=== PATIENT | female | born 1940 | race Caucasian/White ===

== ENCOUNTER 2018-06-05 18:31 | Inpatient (IN) | payer MEDICARE ==
[~2018-06-05] VITALS: Ht 165.1 cm; Wt 78.1 kg
--- NOTE | ~2018-06-05 | EKG ---
[place], [place] ELECTROCARDIOGRAM REPORT NAME: LEIGHTON DUKE UNIT #: [id number] ROOM: 412 DOCTOR: EUN DRAFT REPORT BIRTHDATE: [birth year] [facility] Test Date: 2018-06-05 Test Time: 18:35:04 Pat Name: LEIGHTON DUKE Department: Room: 412 Gender: F Glass Installer Technician: Yvette Davila : 1940 Requested By: LUIS ALBERTO VILLASENOR Order Number: [id number] Reading MD: Fransico Vásquez MD Measurements Intervals [place] Rate: 63 P: 66 MD: 263 QRS: 59 QRSD: 103 T: 44 QT: 446 QTc: 457 Interpretive Statements Sinus rhythm Prolonged MD interval, first degree block Probable left atrial enlargement Borderline T abnormalities, anterior leads Electronically Signed On 06-07-2018 14:32:06 PST by Fransico Vásquez MD CM:EKGRPT:ELECTROCARDIOGRAM REPORT 1835 1432 LUIS ALBERTO MANJARREZ DRAFT REPORT LUIS ALBERTO VILLASENOR DO
--- NOTE | ~2018-06-05 | EKG ---
[place], [place] ELECTROCARDIOGRAM REPORT NAME: LEIGHTON DUKE UNIT #: [id number] ROOM: 412 DOCTOR: EUN DRAFT REPORT BIRTHDATE: [birth year] [facility] Test Date: 2018-06-06 Test Time: 00:21:05 Pat Name: LEIGHTON DUKE Department: Room: 412 Gender: F Turbine Technician: Mesfin Savage : 1940 Requested By: LUIS ALBERTO VILLASENOR Order Number: [id number] Reading MD: Fransico Vásquez MD Measurements Intervals [place] Rate: 61 P: 65 PA: 273 QRS: 54 QRSD: 96 T: 24 QT: 453 QTc: 457 Interpretive Statements Sinus rhythm Prolonged PA interval/ firstr degree block Borderline T abnormalities, anterior leads Electronically Signed On 06-07-2018 14:33:59 PST by Fransico Vásquez MD CM:EKGRPT:ELECTROCARDIOGRAM REPORT 0021 1433 LUIS ALBERTO MANJARREZ DRAFT REPORT LUIS ALBERTO VILLASENOR DO
--- NOTE | ~2018-06-05 | EKG ---
[place], [place] ELECTROCARDIOGRAM REPORT NAME: LEIGHTON DUKE UNIT #: [id number] ROOM: 412 DOCTOR: EUN DRAFT REPORT BIRTHDATE: [birth year] [facility] Test Date: 2018-06-05 Test Time: 21:21:34 Pat Name: LEIGHTON DUKE Department: Room: 412 Gender: F Assistant Store Manager Sales: Yvette Davila : 1940 Requested By: LUIS ALBERTO VILLASENOR Order Number: [id number] Reading MD: Fransico Vásquez MD Measurements Intervals [place] Rate: 63 P: 4 NH: 261 QRS: 33 QRSD: 100 T: 24 QT: 440 QTc: 451 Interpretive Statements Sinus rhythm Prolonged [place] interval Abnormal inferior Q waves Borderline ST depression, anterolateral leads Electronically Signed On 06-07-2018 14:32:45 PST by Fransico Vásquez MD CM:EKGRPT:ELECTROCARDIOGRAM REPORT 20 1432 LUIS ALBERTO MANJARREZ DRAFT REPORT LUIS ALBERTO VILLASENOR DO
[2018-06-05 18:31] VITALS: BP 154/70
[~2018-06-05 18:31] MED LIST: PERCOCET 325 MG1 TA2 PO
[2018-06-05 19:09] LABS: BASO % 0.2 % (0.0-1.0); EOS # 0.2 10*3/uL (0.0-0.4); HEMATOCRIT 42.7 % (37.0-47.0); HEMOGLOBIN 14.4 g/dl (12.0-16.0); LYMPH % 37.5 % (27.0-41.0); MEAN CELL VOLUME 89.3 fl (81.0-99.0); MEAN CORPUSCULAR HGB 30.1 pg (27.0-31.0); MEAN CORPUSCULAR HGB CONC 33.7 g/dl (33.0-37.0); MEAN PLATELET VOLUME 10.8 fl (9.6-12.3); MONO # 0.6 10*3/uL (0.1-1.0); MONO % 6.8 % (3.0-9.0); NEUT # 4.3 10*3/uL (2.3-7.9); NEUT % 53.3 % (47.0-73.0); PLATELET COUNT AUTOMATED 221 10*3/uL (130-400); RED BLOOD COUNT 4.78 10*6/uL (4.10-5.10); RED CELL DISTRI WIDTH 13.1 % (0-14.5); WHITE BLOOD COUNT 8.1 10*3/uL (4.8-10.8)
[2018-06-05 19:26] VITALS: BP 154/70
[2018-06-05 19:27] LABS: ALBUMIN 3.8 gm/dl (3.1-4.5); ALKALINE PHOSPHATASE 70 U/L (45-117); BUN 14 mg/dl (7-24); CHLORIDE 102 mmol/L (98-107); CREATININE 0.82 mg/dL (0.55-1.02); POTASSIUM 3.2 mmol/L (3.5-5.1); SGOT/AST 39 IU/L (3-35); SGPT/ALT 32 U/L (12-78); SODIUM 138 mmol/L (136-145); TOTAL PROTEIN 7.4 gm/dL (6.4-8.2)
[2018-06-05 19:35] LABS: TROPONIN I < 0.015 ng/ml (<0.045)
[2018-06-05 20:12] LABS: ACT PARTIAL THROMBO TIME 21.7 SECONDS (20.8-31.5)
[2018-06-05 20:30] VITALS: BP 160/64
[2018-06-05 20:56] VITALS: BP 141/58
[2018-06-05] MEDS ORDERED: DILTIAZEM ER240 M1 PO (23:01)
[2018-06-05] MEDS ORDERED: LOSARTAN POTAS100 MG PO (23:02)
[2018-06-05] MEDS ORDERED: OMEPRAZOLE MAGN20 MG PO (23:03)
[2018-06-05] MEDS ORDERED: HYDROCHLOROTHIA25 M1 PO (23:03)
[2018-06-05] MEDS ORDERED: METOPROLOL SUCC25 M2 PO (23:04)
[2018-06-05] MEDS ORDERED: VITAMIN D32000 UNIT PO (23:04)
[2018-06-06] VITALS: BP 124/64
[2018-06-06 07:51] LABS: BASO % 0.3 % (0.0-1.0); EOS # 0.1 10*3/uL (0.0-0.4); EOS % 0.7 % (1.0-4.0); HEMATOCRIT 39.5 % (37.0-47.0); HEMOGLOBIN 13.2 g/dl (12.0-16.0); LYMPH # 1.1 10*3/uL (1.3-4.4); LYMPH % 16.1 % (27.0-41.0); MEAN CELL VOLUME 89.2 fl (81.0-99.0); MEAN CORPUSCULAR HGB 29.8 pg (27.0-31.0); MEAN CORPUSCULAR HGB CONC 33.4 g/dl (33.0-37.0); MEAN PLATELET VOLUME 10.2 fl (9.6-12.3); MONO # 0.5 10*3/uL (0.1-1.0); MONO % 7.4 % (3.0-9.0); NEUT # 5.2 10*3/uL (2.3-7.9); NEUT % 75.2 % (47.0-73.0); PLATELET COUNT AUTOMATED 207 10*3/uL (130-400); RED BLOOD COUNT 4.43 10*6/uL (4.10-5.10); RED CELL DISTRI WIDTH 13.3 % (0-14.5); WHITE BLOOD COUNT 6.9 10*3/uL (4.8-10.8)
[2018-06-06 08:00] VITALS: BP 150/90
[2018-06-06 08:21] LABS: CHLORIDE 105 mmol/L (98-107); POTASSIUM 3.7 mmol/L (3.5-5.1); SODIUM 139 mmol/L (136-145)
[2018-06-06 08:33] LABS: ALBUMIN 3.6 gm/dl (3.1-4.5); ALKALINE PHOSPHATASE 73 U/L (45-117); BUN 12 mg/dl (7-24); CHOLESTEROL 157 mg/dL (<200); CREATININE 0.72 mg/dL (0.55-1.02); FREE T4 1.01 ng/dl (0.76-1.46); HDL CHOLESTEROL 69 mg/dl (40-60); LDL CHOLESTEROL 64 mg/dL (9-159); PHOSPHOROUS 2.5 mg/dL (2.5-4.9); SGOT/AST 20 IU/L (3-35); SGPT/ALT 29 U/L (12-78); TOTAL PROTEIN 7.3 gm/dL (6.4-8.2); TRIGLYCERIDES 122 mg/dl (<150); VLDL CHOLESTEROL 24 mg/dL (6-40)
[2018-06-06 10:30] LABS: VITAMIN D, 25-HYDROXY 32.8 ng/mL (30-100)
[2018-06-06 12:00] VITALS: BP 162/77
== END 2018-06-06 15:30 | disposition home or self-care (01) | DRG 392 ==
LOC: ED 18:31 → EDHOLD 20:22 → 4E 20:22
PROVIDERS: Emergency Medicine; Internal Medicine Nephrology
DX: K21.9 Gastro-esophageal reflux disease without esophagitis (principal); R07.89 Other chest pain; E87.6 Hypokalemia; R00.1 Bradycardia, unspecified; R73.9 Hyperglycemia, unspecified; E83.41 Hypermagnesemia; R74.0 Nonspecific elevation of levels of transaminase and lactic acid dehydrogenase [LDH]; E66.3 Overweight; K44.9 Diaphragmatic hernia without obstruction or gangrene; I10 Essential (primary) hypertension; E74.39 Other disorders of intestinal carbohydrate absorption; Z82.49 Family history of ischemic heart disease and other diseases of the circulatory system; Z85.3 Personal history of malignant neoplasm of breast; Z90.710 Acquired absence of both cervix and uterus; Z90.12 Acquired absence of left breast and nipple; Z82.3 Family history of stroke; Z80.0 Family history of malignant neoplasm of digestive organs; Z88.2 Allergy status to sulfonamides; Z79.899 Other long term (current) drug therapy; Z68.28 Body mass index [BMI] 28.0-28.9, adult

== ENCOUNTER → 2018-06-11 | Outpatient (CLI) | payer MEDICARE ==
[~2018-06-11] MED LIST changes: +DILTIAZEM ER240 M1 PO; +HYDROCHLOROTHIA25 M1 PO; +LOSARTAN POTAS100 MG PO; +METOPROLOL SUCC25 M2 PO; +OMEPRAZOLE MAGN20 MG PO; +VITAMIN D32000 UNIT PO
--- NOTE | ~2018-06-11 | ST ---
[place], [place] EXERCISE STRESS TEST REPORT [facility]KE [id number] UNIT #: [id number] ROOM: DOCTOR: IWONA JEFFERSON MD BIRTHDATE: [birth year] DOS: 06/11/2018 PHARMACOLOGIC STRESS TEST. REASON FOR STRESS TEST: Precordial chest pain. PROCEDURE: The patient was given a rapid infusion of regadenoson 0.4 mg intravenously followed by a saline flush. She experienced dyspnea, lightheadedness and chest pressure, but her symptoms resolved quickly and spontaneously. The resting electrocardiogram was normal. She did not have any changes with the infusion. She did have a normal heart rate response to the infusion. IMPRESSION: 1. Well tolerated infusion of regadenoson. 2. Radionuclide administered 40 seconds after the infusion. Please see the separate imaging report for further details of the stress test results. IWONA JEFFERSON MD CM:STRESS:EXERCISE STRESS TEST REPORT 1025 2318 IWONA JEFFERSON MD
== END | disposition home or self-care (01) ==
LOC: CARD 04:29
DX: R07.2 Precordial pain (principal)

== ENCOUNTER → 2020-04-07 | Outpatient (CLI) | payer MEDICARE | END | disposition home or self-care (01) | LOC: CP 14:25 | PROVIDERS: ATTEND Psychiatry & Neurology Neurology | DX: G12.21 Amyotrophic lateral sclerosis (principal) ==